=== PATIENT | female | born 1945 | race Caucasian/White ===

== ENCOUNTER 2018-11-07 18:36 | Emergency (ER) | payer MEDICARE, BC | END 2018-11-07 19:56 | disposition home or self-care (01) | LOC: BURERS 18:36 | DX: M10.9 Gout, unspecified (principal); E03.9 Hypothyroidism, unspecified; K21.9 Gastro-esophageal reflux disease without esophagitis; E78.2 Mixed hyperlipidemia; I10 Essential (primary) hypertension; Z79.899 Other long term (current) drug therapy | CPT/HCPCS: 36415; 84550; 99283 ==

== ENCOUNTER 2022-01-05 15:59 | Emergency (ER) | payer MEDICARE, BC ==
[2022-01-05] MEDS ORDERED: Clindamycin 150 MG CAP ONE (16:42)
[2022-01-05] MEDS ORDERED: predniSONE 20 MG TAB ONE (16:42)
== END 2022-01-05 16:55 | disposition home or self-care (01) ==
LOC: BURERS 15:59
DX: L03.116 Cellulitis of left lower limb (principal); L03.115 Cellulitis of right lower limb; I10 Essential (primary) hypertension; E78.2 Mixed hyperlipidemia; K21.9 Gastro-esophageal reflux disease without esophagitis; E03.9 Hypothyroidism, unspecified; Z79.890 Hormone replacement therapy; Z79.899 Other long term (current) drug therapy
CPT/HCPCS: 99283; J7512

== ENCOUNTER 2022-01-14 12:21 | Emergency (ER) | payer MEDICARE, BC ==
[2022-01-14] MEDS ORDERED: Ondansetron PF 4 MG/2 ML Vial ONE (12:57)
[2022-01-14] MEDS ORDERED: Pantoprazole 40 MG VIAL ONE (12:57)
[2022-01-14 13:00] LABS: #Basophils 0.1 thou/uL (0.0-0.2); #Eosinphils 0.4 thou/uL (0.0-0.7); #Lymphocytes 3.8 thou/uL (1.20-3.40); #Neutrophils 8.6 thou/uL (1.40-6.50); %Basophils 0.6 % (0.0-1.0); %Lymphocytes 27.4 % (21.0-51.0); %Monocytes 6.9 % (0.0-10.0); %Neutrophils 62.1 % (42.0-75.0); Hemoglobin 14.9 g/dL (12.0-16.0); Mean Corpuscular HGB CONC 32.8 g/dL (32.0-36.0); Mean Corpuscular Hemoglobin 31.5 pg (27.0-31.0); Mean Platelet Volume 6.5 fL (7.4-10.4); Platelet Count 320 thou/uL (130-400); Red Blood Cell (RBC) Count 4.73 mill/uL (4.20-5.40); White Blood Cell (WBC) Count 13.8 thou/uL (4.8-10.8)
[2022-01-14 13:17] LABS: ALT (SGPT) 27 U/L (8-55); AST (SGOT) 20 U/L (5-34); Albumin 4.2 g/dL (3.4-4.8); Alkaline Phosphatase 81 U/L (40-110); Anion Gap 18 mmol/L (10-20); BUN (Urea Nitrogen) 32 mg/dL (9.8-20.1); Bilirubin, Total 0.8 mg/dL (0.2-1.2); Calc. Creatinine Clearance 0 mL/min (70-130); Calcium 9.4 mg/dL (7.8-10.44); Carbon Dioxide 29 mmol/L (23-31); Chloride 103 mmol/L (98-107); Globulin 2.7 g/dL (2.4-3.5); Glucose 81 mg/dL (83-110); Lipase 19 U/L (8-78); Potassium 4.1 mmol/L (3.5-5.1); Protein, Total 6.9 g/dL (5.8-8.1); Sodium 146 mmol/L (136-145)
[2022-01-14 14:28] LABS: Bilirubin Negative (Negative); Blood, Urine Negative (Negative); Clarity Clear (Clear); Glucose, Urine (Dipstick) Negative (Negative); Ketone, Urine Negative (Negative); Leukocyte Trace (Negative); Nitrite Negative (Negative); Protein, Urine (Dipstick) Negative (Neg-Trace); Specific Gravity, Urine 1.015 (1.005-1.030); Urobilinogen 0.2 mg/dL (Less than 2); pH, Urine 6.5 (5.0-9.0)
[2022-01-14 15:13] LABS: Bacteria/HPF 1+ HPF (None Seen); RBC/HPF None Seen HPF (0-3); Renal Epithelial 0-3 HPF (None Seen); Squamous Epithelial 0-3 HPF (0-3); WBC/HPF 0-3 HPF (0-3)
== END 2022-01-14 14:57 | disposition home or self-care (01) ==
LOC: BURERS 12:21
DX: K29.70 Gastritis, unspecified, without bleeding (principal); D72.829 Elevated white blood cell count, unspecified; I10 Essential (primary) hypertension; E03.9 Hypothyroidism, unspecified; K21.9 Gastro-esophageal reflux disease without esophagitis; E78.2 Mixed hyperlipidemia; Z20.822 Contact with and (suspected) exposure to COVID-19; Z79.899 Other long term (current) drug therapy
CPT/HCPCS: 71045; 80053; 81003; 81015; 83605; 83690; 83880; 84484; 85025; 93005; 96374; 96375; C9113; J2405; U0003; U0005

== ENCOUNTER 2022-08-12 15:16 | Emergency (ER) | payer MEDICARE, BC | END 2022-08-12 16:11 | disposition home or self-care (01) | LOC: BURERS 15:16 | DX: S29.011A Strain of muscle and tendon of front wall of thorax, initial encounter (principal); K21.9 Gastro-esophageal reflux disease without esophagitis; E03.9 Hypothyroidism, unspecified; E78.2 Mixed hyperlipidemia; I10 Essential (primary) hypertension; Z79.899 Other long term (current) drug therapy; X50.0XXA Overexertion from strenuous movement or load, initial encounter ==

== ENCOUNTER 2022-08-15 16:05 | Inpatient (IN) | payer MEDICARE, BC ==
[2022-08-15 17:24] LABS: Mean Corpuscular HGB CONC 33.4 g/dL (32.0-36.0); Mean Corpuscular Hemoglobin 31.8 pg (27.0-31.0); Mean Corpuscular Volume 94.9 fl (78.0-98.0); Mean Platelet Volume 7.4 fL (7.4-10.4); Platelet Count 374 10x3/uL (130-400); RBC Distribution Width 13.5 % (11.5-14.5); Red Blood Cell (RBC) Count 4.08 mill/uL (4.20-5.40); White Blood Cell (WBC) Count 25.5 10x3/uL (4.8-10.8)
[2022-08-15 17:38] LABS: Albumin 3.5 g/dL (3.4-4.8); Alkaline Phosphatase 134 U/L (40-110); Anion Gap 21 mmol/L (10-20); BUN (Urea Nitrogen) 56 mg/dL (9.8-20.1); Bilirubin, Total 1.7 mg/dL (0.2-1.2); Calc. Creatinine Clearance 0 mL/min (70-130); Calcium 9.7 mg/dL (7.8-10.44); Carbon Dioxide 24 mmol/L (23-31); Chloride 99 mmol/L (98-107); Estimated GFR 23; Glucose 161 mg/dL (83-110); Potassium 3.9 mmol/L (3.5-5.1); Protein, Total 7.5 g/dL (5.8-8.1); Sodium 140 mmol/L (136-145)
[2022-08-15 17:39] LABS: ALT (SGPT) 96 U/L (8-55); AST (SGOT) 155 U/L (5-34)
[2022-08-15 17:48] LABS: Band 5 % (5-11); Lymphocytes 3 % (21-51); MDiff Complete? YES; Monocytes 3 % (0-10); Neutrophil 89 % (42-75); Platelet Morphology Comment Appears Adequate; RBC Morphology Normal
[2022-08-15 18:00] LABS: CKMB 6.2 ng/mL (0-6.6)
[2022-08-15] MEDS ORDERED: Azithromycin 500 MG VIAL ONE (18:02)
[2022-08-15] MEDS ORDERED: cefTRIAXone\\ROCEPHIN 2 GM VIAL ONE (18:02)
[2022-08-15] MEDS ORDERED: Sodium Chloride 0.9% 200 ML ONE (18:03)
[2022-08-15 20:50] LABS: Lactic Acid 1.6 mmol/L (0.5-2.2)
[2022-08-15 21:44] LABS: Troponin I 0.025 ng/mL (< 0.028)
[2022-08-16 08:41] LABS: #Lymphocytes 0.8 thou/uL (1.20-3.40); #Monocytes 0.4 thou/uL (0.11-0.59); #Neutrophils 25.7 thou/uL (1.40-6.50); %Basophils 0.1 % (0.0-1.0); %Eosinophils 0.1 % (0.0-10.0); %Lymphocytes 2.9 % (21.0-51.0); %Monocytes 1.4 % (0.0-10.0); %Neutrophils 95.5 % (42.0-75.0); Mean Corpuscular HGB CONC 33.5 g/dL (32.0-36.0); Mean Corpuscular Hemoglobin 32.2 pg (27.0-31.0); Mean Corpuscular Volume 95.9 fl (78.0-98.0); Mean Platelet Volume 7.9 fL (7.4-10.4); Platelet Count 336 10x3/uL (130-400); RBC Distribution Width 13.8 % (11.5-14.5); Red Blood Cell (RBC) Count 3.72 mill/uL (4.20-5.40); White Blood Cell (WBC) Count 26.9 10x3/uL (4.8-10.8)
[2022-08-16 08:56] LABS: ALT (SGPT) 73 U/L (8-55); AST (SGOT) 100 U/L (5-34); Albumin 2.9 g/dL (3.4-4.8); Alkaline Phosphatase 117 U/L (40-110); Anion Gap 16 mmol/L (10-20); BUN (Urea Nitrogen) 55 mg/dL (9.8-20.1); Bilirubin, Total 0.8 mg/dL (0.2-1.2); Calc. Creatinine Clearance 0 mL/min (70-130); Carbon Dioxide 24 mmol/L (23-31); Chloride 106 mmol/L (98-107); Estimated GFR 31; Globulin 3.3 g/dL (2.4-3.5); Glucose 82 mg/dL (83-110); Potassium 4.4 mmol/L (3.5-5.1); Protein, Total 6.2 g/dL (5.8-8.1); Sodium 142 mmol/L (136-145)
[2022-08-16 10:37] VITALS: BMI 24.7
[2022-08-16 11:08] LABS: SARS-CoV-2 NAA Rapid Test Not Detected (NotDetected)
[2022-08-16] MEDS ORDERED: Senokot S 8.6-50 MG TAB PO PRN (12:24)
[2022-08-16] MEDS ORDERED: HYDROcodone/Acetaminophen 10/325 mg Tablet PO PRN (12:24)
[2022-08-16] MEDS ORDERED: Bisacodyl 5 MG TAB PO PRN (12:24)
[2022-08-16] MEDS ORDERED: Ondansetron ODT 4 MG TAB PO PRN (12:24)
[2022-08-16] MEDS ORDERED: Acetaminophen 325 MG TAB PO PRN (12:24)
[2022-08-16] MEDS ORDERED: Bisacodyl 10 MG SUPP PR PRN (12:24)
[2022-08-16] MEDS ORDERED: cefTRIAXone\\ROCEPHIN 2 GM in Sodium Chloride 0.9% 100 ML IVPB SCH (16:00)
[2022-08-16] MEDS: Azithromycin 500 MG in Sodium Chloride 0.9% 250 ML 250 ML IVPB SCH (16:58)
[2022-08-16] MEDS ORDERED: Azithromycin 1,000 MG in Sodium Chloride 0.9% 500 ML IVPB SCH (17:00)
[2022-08-16] MEDS: Famotidine 20 MG TAB PO SCH (20:46)
[2022-08-16] MEDS ORDERED: Furosemide 20 MG TAB PO SCH (21:00)
[2022-08-17] MEDS: Levothyroxine Sodium 112 MCG TAB PO SCH (05:41)
[2022-08-17] MEDS ORDERED: Furosemide 20 MG TAB PO SCH (06:00)
[2022-08-17 06:01] LABS: Anion Gap 15 mmol/L (10-20); BUN (Urea Nitrogen) 49 mg/dL (9.8-20.1); Calc. Creatinine Clearance 32 mL/min (70-130); Calcium 9.4 mg/dL (7.8-10.44); Carbon Dioxide 24 mmol/L (23-31); Chloride 105 mmol/L (98-107); Estimated GFR 37; Glucose 99 mg/dL (83-110); Potassium 3.8 mmol/L (3.5-5.1); Sodium 140 mmol/L (136-145)
[2022-08-17 06:03] LABS: Band 14 % (5-11); Eosinophils 1 % (0-10); Hemoglobin 11.1 g/dL (12.0-16.0); Lymphocytes 28 % (21-51); MDiff Complete? YES; Mean Corpuscular HGB CONC 31.2 g/dL (32.0-36.0); Mean Corpuscular Hemoglobin 30.8 pg (27.0-31.0); Mean Corpuscular Volume 98.6 fl (78.0-98.0); Mean Platelet Volume 7.9 fL (7.4-10.4); Monocytes 2 % (0-10); Neutrophil 55 % (42-75); Platelet Count 364 10x3/uL (130-400); Platelet Morphology Comment Appears Adequate; RBC Distribution Width 14.2 % (11.5-14.5); Red Blood Cell (RBC) Count 3.59 mill/uL (4.20-5.40)
[2022-08-17] MEDS: Enoxaparin Sodium 40 MG/0.4 ML SYRINGE SC SCH (08:52)
[2022-08-17] MEDS: Atorvastatin Calcium 40 MG TAB PO SCH (08:52)
[2022-08-17] MEDS: Famotidine 20 MG TAB PO SCH ×2 (08:52→20:22)
[2022-08-17] MEDS: Allopurinol 100 MG TAB PO SCH (08:52)
[2022-08-17] MEDS: Amlodipine 5 MG TAB PO SCH (08:53)
[2022-08-17] MEDS ORDERED: Non-Formulary Item 1 EACH (Oxybutynin Chloride [Oxybutynin Chloride Er] 15 MG Tab.Er.24) PO SCH (09:00)
[2022-08-17] MEDS ORDERED: Non-Formulary Item 1 EACH (Duloxetine [Cymbalta] 60 MG Cap) PO SCH (09:00)
[2022-08-17] MEDS ORDERED: Non-Formulary Item 1 EACH (Levothyroxine Sodium [Levothyroxine] 112 MCG Capsule) PO SCH (09:00)
[2022-08-17] MEDS ORDERED: Oxybutynin ER 5 MG TAB PO SCH (09:00)
[2022-08-17] MEDS ORDERED: DULoxetine 30 MG CAP PO SCH ×2 (09:00→10:00)
[2022-08-17] MEDS ORDERED: Non-Formulary Item 1 EACH (Amlodipine [Norvasc] 10 MG Tab) PO SCH ×2 (09:00)
[2022-08-17] MEDS: Sodium Chloride 0.9% 1,000 ML IV SCH ×2 (10:12→16:55)
[2022-08-17] MEDS: cefTRIAXone\\ROCEPHIN 2 GM in Sodium Chloride 0.9% 100 ML IVPB SCH (16:55)
[2022-08-17] MEDS: Azithromycin 500 MG in Sodium Chloride 0.9% 250 ML 250 ML IVPB SCH (17:00)
[2022-08-17] MEDS: DULoxetine 30 MG CAP PO SCH (20:22)
[2022-08-17] MEDS: Guaifenesin DM 100-10/5 ML UDCUP PO PRN (20:22)
[2022-08-18] MEDS: Guaifenesin DM 100-10/5 ML UDCUP PO PRN ×2 (02:27→20:17)
[2022-08-18] MEDS: Sodium Chloride 0.9% 1,000 ML IV SCH ×2 (04:14→09:05)
[2022-08-18] MEDS: Levothyroxine Sodium 112 MCG TAB PO SCH (05:41)
[2022-08-18] MEDS ORDERED: DULoxetine 30 MG CAP PO SCH (09:00)
[2022-08-18] MEDS: Amlodipine 5 MG TAB PO SCH (09:04)
[2022-08-18] MEDS: Atorvastatin Calcium 40 MG TAB PO SCH (09:04)
[2022-08-18] MEDS: Allopurinol 100 MG TAB PO SCH (09:04)
[2022-08-18] MEDS: Famotidine 20 MG TAB PO SCH ×2 (09:04→20:17)
[2022-08-18] MEDS: Enoxaparin Sodium 40 MG/0.4 ML SYRINGE SC SCH (09:05)
[2022-08-18] MEDS ORDERED: Sodium Chloride 0.9% 1,000 ML IV SCH (10:27)
[2022-08-18 14:16] VITALS: BP 124/70; TEMP 98.3
[2022-08-18] MEDS: cefTRIAXone\\ROCEPHIN 2 GM in Sodium Chloride 0.9% 100 ML IVPB SCH (15:40)
[2022-08-18] MEDS: Azithromycin 500 MG in Sodium Chloride 0.9% 250 ML 250 ML IVPB SCH (17:09)
[2022-08-18] MEDS: DULoxetine 30 MG CAP PO SCH (20:17)
== END 2022-08-18 21:55 | disposition short-term general hospital (02) | DRG 195 ==
LOC: BURERS 16:05 → BURMED 08-16 08:48
PROVIDERS: ADMIT Family Medicine; ATTEND Nurse Practitioner
DX: J18.9 Pneumonia, unspecified organism (principal); E03.9 Hypothyroidism, unspecified; E78.5 Hyperlipidemia, unspecified; K21.9 Gastro-esophageal reflux disease without esophagitis; I12.9 Hypertensive chronic kidney disease with stage 1 through stage 4 chronic kidney disease, or unspecified chronic kidney disease; N18.30 Chronic kidney disease, stage 3 unspecified; E78.00 Pure hypercholesterolemia, unspecified; Z20.822 Contact with and (suspected) exposure to COVID-19; Z88.5 Allergy status to narcotic agent; Z88.8 Allergy status to other drugs, medicaments and biological substances; Z88.0 Allergy status to penicillin; Z88.2 Allergy status to sulfonamides; Z87.891 Personal history of nicotine dependence; Z79.899 Other long term (current) drug therapy; Z79.890 Hormone replacement therapy
CPT/HCPCS: 36415; 71045; 71250; 80048; 80053; 82553; 83605; 83880; 84484; 85025; 87040; 93005; 94640; J0456; J0696; J1650; J3490; J7050; J7620; Q0162; U0002

== ENCOUNTER 2022-08-22 10:18 | Inpatient (IN) | payer MEDICARE, BC ==
[2022-08-22 16:29] VITALS: BMI 25.0
[2022-08-22] MEDS ORDERED: Meclizine HCl 25 MG TAB PO PRN (16:52)
[2022-08-22] MEDS ORDERED: Allopurinol 100 MG TAB PO PRN (16:52)
[2022-08-22] MEDS ORDERED: oxyCODONE 5 MG TAB PO PRN (17:04)
[2022-08-22] MEDS ORDERED: Acetaminophen 325 MG TAB PO PRN (17:05)
[2022-08-22] MEDS ORDERED: Fluticasone Propionate Nasal Spray 16 gm Bottle NASAL PRN (17:10)
[2022-08-22] MEDS: Ipratropium/Albuterol 3 ML NEB NEB SCH ×2 (17:42→20:50)
[2022-08-22] MEDS: Famotidine 20 MG TAB PO SCH (20:46)
[2022-08-22] MEDS: Acetaminophen 325 MG TAB PO PRN (20:46)
[2022-08-22] MEDS: Atorvastatin Calcium 40 MG TAB PO SCH (20:46)
[2022-08-22] MEDS: oxyCODONE 5 MG TAB PO PRN (20:47)
[2022-08-22] MEDS: FLUTICASONE PROPIONATE TOP SCH (20:50)
[2022-08-22] MEDS: tiZANidine HCl 4 MG TAB PO SCH (20:50)
[2022-08-22] MEDS: Estradiol [Estrace 0.01% Vaginal Cream] 42.5 GM Tube VAG SCH (20:50)
[2022-08-23] MEDS: Ondansetron ODT 4 MG TAB PO PRN (03:59)
[2022-08-23] MEDS: Levothyroxine Sodium 100 MCG TAB PO SCH (04:48)
[2022-08-23] MEDS: oxyCODONE 5 MG TAB PO PRN ×3 (04:49→21:33)
[2022-08-23] MEDS: Acetaminophen 325 MG TAB PO PRN ×2 (04:50→21:35)
[2022-08-23] MEDS ORDERED: Sodium Chloride 0.9% 500 ML IV SCH (08:15)
[2022-08-23] MEDS: Amlodipine 5 MG TAB PO SCH (09:33)
[2022-08-23] MEDS: Famotidine 20 MG TAB PO SCH ×2 (09:33→21:33)
[2022-08-23] MEDS: FLUTICASONE PROPIONATE TOP SCH ×2 (09:34→21:44)
[2022-08-23] MEDS: Estradiol [Estrace 0.01% Vaginal Cream] 42.5 GM Tube VAG SCH ×3 (09:34→21:44)
[2022-08-23] MEDS: tiZANidine HCl 4 MG TAB PO SCH ×3 (09:34→21:45)
[2022-08-23] MEDS: Ipratropium/Albuterol 3 ML NEB NEB SCH ×4 (09:37→21:35)
[2022-08-23] MEDS: Atorvastatin Calcium 40 MG TAB PO SCH (21:33)
[2022-08-24] MEDS: Ondansetron ODT 4 MG TAB PO PRN (04:53)
[2022-08-24] MEDS: Levothyroxine Sodium 100 MCG TAB PO SCH (06:22)
[2022-08-24 08:43] LABS: SARS-CoV-2 NAA Rapid Test Not Detected (NotDetected)
[2022-08-24] MEDS: Amlodipine 5 MG TAB PO SCH (09:34)
[2022-08-24] MEDS: Famotidine 20 MG TAB PO SCH ×2 (09:35→22:06)
[2022-08-24] MEDS: tiZANidine HCl 4 MG TAB PO SCH ×3 (09:36→22:07)
[2022-08-24] MEDS: Ipratropium/Albuterol 3 ML NEB NEB SCH ×4 (09:37→22:11)
[2022-08-24] MEDS: FLUTICASONE PROPIONATE TOP SCH ×2 (09:39→22:06)
[2022-08-24] MEDS: Estradiol [Estrace 0.01% Vaginal Cream] 42.5 GM Tube VAG SCH ×3 (09:39→22:06)
[2022-08-24] MEDS: oxyCODONE 5 MG TAB PO PRN ×2 (13:28→22:07)
[2022-08-24] MEDS: Atorvastatin Calcium 40 MG TAB PO SCH (22:06)
[2022-08-24] MEDS: Acetaminophen 325 MG TAB PO PRN (22:08)
[2022-08-25] MEDS: Levothyroxine Sodium 100 MCG TAB PO SCH (06:25)
[2022-08-25] MEDS: Ondansetron ODT 4 MG TAB PO PRN (06:27)
[2022-08-25] MEDS: oxyCODONE 5 MG TAB PO PRN ×2 (09:38→21:58)
[2022-08-25] MEDS: Acetaminophen 325 MG TAB PO PRN ×2 (09:39→21:59)
[2022-08-25] MEDS: Amlodipine 5 MG TAB PO SCH (09:40)
[2022-08-25] MEDS: Famotidine 20 MG TAB PO SCH ×2 (09:40→21:58)
[2022-08-25] MEDS: Ipratropium/Albuterol 3 ML NEB NEB SCH ×4 (09:41→22:00)
[2022-08-25] MEDS: tiZANidine HCl 4 MG TAB PO SCH ×3 (09:42→22:07)
[2022-08-25] MEDS: Estradiol [Estrace 0.01% Vaginal Cream] 42.5 GM Tube VAG SCH ×3 (09:42→22:07)
[2022-08-25] MEDS: FLUTICASONE PROPIONATE TOP SCH ×2 (09:42→22:07)
[2022-08-25] MEDS: Atorvastatin Calcium 40 MG TAB PO SCH (21:58)
[2022-08-26] MEDS: Ondansetron ODT 4 MG TAB PO PRN ×2 (02:18→08:39)
[2022-08-26] MEDS: oxyCODONE 5 MG TAB PO PRN ×2 (04:24→22:51)
[2022-08-26] MEDS: Acetaminophen 325 MG TAB PO PRN ×2 (04:26→22:52)
[2022-08-26 05:14] LABS: #Basophils 0.1 thou/uL (0.0-0.2); #Eosinphils 0.2 thou/uL (0.0-0.7); #Lymphocytes 2.1 thou/uL (1.20-3.40); #Monocytes 0.5 thou/uL (0.11-0.59); #Neutrophils 5.2 thou/uL (1.40-6.50); %Basophils 1.6 % (0.0-1.0); %Eosinophils 2.2 % (0.0-10.0); %Lymphocytes 26.2 % (21.0-51.0); %Monocytes 5.6 % (0.0-10.0); %Neutrophils 64.5 % (42.0-75.0); Mean Corpuscular HGB CONC 33.4 g/dL (32.0-36.0); Mean Corpuscular Hemoglobin 31.7 pg (27.0-31.0); Mean Corpuscular Volume 94.8 fl (78.0-98.0); Mean Platelet Volume 6.8 fL (7.4-10.4); Platelet Count 370 10x3/uL (130-400); RBC Distribution Width 14.2 % (11.5-14.5); Red Blood Cell (RBC) Count 3.14 mill/uL (4.20-5.40)
[2022-08-26 05:23] LABS: ALT (SGPT) 60 U/L (8-55); AST (SGOT) 57 U/L (5-34); Albumin 3.1 g/dL (3.4-4.8); Alkaline Phosphatase 144 U/L (40-110); Anion Gap 15 mmol/L (10-20); BUN (Urea Nitrogen) 13 mg/dL (9.8-20.1); Bilirubin, Total 0.4 mg/dL (0.2-1.2); Calc. Creatinine Clearance 33 mL/min (70-130); Calcium 8.2 mg/dL (7.8-10.44); Carbon Dioxide 28 mmol/L (23-31); Chloride 105 mmol/L (98-107); Estimated GFR 38; Globulin 3.1 g/dL (2.4-3.5); Glucose 83 mg/dL (83-110); Potassium 5.1 mmol/L (3.5-5.1); Protein, Total 6.2 g/dL (5.8-8.1); Sodium 143 mmol/L (136-145)
[2022-08-26] MEDS: Levothyroxine Sodium 100 MCG TAB PO SCH (06:01)
[2022-08-26] MEDS: Famotidine 20 MG TAB PO SCH (09:24)
[2022-08-26] MEDS: Amlodipine 5 MG TAB PO SCH (09:24)
[2022-08-26] MEDS: Ipratropium/Albuterol 3 ML NEB NEB SCH ×5 (09:25→22:23)
[2022-08-26] MEDS: FLUTICASONE PROPIONATE TOP SCH ×2 (09:28→22:36)
[2022-08-26] MEDS: Estradiol [Estrace 0.01% Vaginal Cream] 42.5 GM Tube VAG SCH ×3 (09:28→22:36)
[2022-08-26] MEDS: tiZANidine HCl 4 MG TAB PO SCH ×3 (09:29→22:36)
[2022-08-26] MEDS: Atorvastatin Calcium 40 MG TAB PO SCH (22:22)
[2022-08-27] MEDS: Ondansetron ODT 4 MG TAB PO PRN (04:40)
[2022-08-27] MEDS: Levothyroxine Sodium 100 MCG TAB PO SCH (06:11)
[2022-08-27] MEDS: Amlodipine 5 MG TAB PO SCH (08:54)
[2022-08-27] MEDS: tiZANidine HCl 4 MG TAB PO SCH ×3 (08:55→22:12)
[2022-08-27] MEDS: FLUTICASONE PROPIONATE TOP SCH ×2 (08:56→22:12)
[2022-08-27] MEDS: Estradiol [Estrace 0.01% Vaginal Cream] 42.5 GM Tube VAG SCH ×3 (08:56→22:11)
[2022-08-27] MEDS: Famotidine 20 MG TAB PO SCH (08:56)
[2022-08-27] MEDS: Ipratropium/Albuterol 3 ML NEB NEB SCH ×4 (10:48→22:11)
[2022-08-27] MEDS: oxyCODONE 5 MG TAB PO PRN (14:17)
[2022-08-27] MEDS: Acetaminophen 325 MG TAB PO PRN (14:21)
[2022-08-27] MEDS: Atorvastatin Calcium 40 MG TAB PO SCH (21:48)
[2022-08-28] MEDS: Ondansetron ODT 4 MG TAB PO PRN ×2 (04:51→12:04)
[2022-08-28] MEDS: Levothyroxine Sodium 100 MCG TAB PO SCH (05:29)
[2022-08-28 06:18] VITALS: TEMP 98
[2022-08-28] MEDS: oxyCODONE 5 MG TAB PO PRN (08:29)
[2022-08-28] MEDS: Acetaminophen 325 MG TAB PO PRN (08:31)
[2022-08-28] MEDS: Amlodipine 5 MG TAB PO SCH (08:32)
[2022-08-28] MEDS: Famotidine 20 MG TAB PO SCH (08:33)
[2022-08-28] MEDS: tiZANidine HCl 4 MG TAB PO SCH (08:33)
[2022-08-28] MEDS: Ipratropium/Albuterol 3 ML NEB NEB SCH (08:33)
[2022-08-28 08:34] VITALS: BP 125/65
[2022-08-28] MEDS: FLUTICASONE PROPIONATE TOP SCH (12:01)
[2022-08-28] MEDS: Estradiol [Estrace 0.01% Vaginal Cream] 42.5 GM Tube VAG SCH (12:01)
== END 2022-08-28 12:35 | disposition home or self-care (01) | DRG 947 ==
LOC: BURMED 13:37
PROVIDERS: ADMIT Family Medicine; ATTEND Family Medicine
DX: R53.81 Other malaise (principal); J18.9 Pneumonia, unspecified organism; G89.4 Chronic pain syndrome; E86.0 Dehydration; Z20.822 Contact with and (suspected) exposure to COVID-19; R79.9 Abnormal finding of blood chemistry, unspecified
CPT/HCPCS: 36415; 80053; 85025; 94640; J7030; J7620; Q0162; U0002